=== PATIENT | female | born 1995 | race Caucasian/White ===

== ENCOUNTER 2017-03-12 11:36 | Emergency (ER) | payer MEDICARE, MEDICAID ==
[~2017-03-12] VITALS: Ht 167.6 cm; Wt 116.1 kg
[~2017-03-12 11:36] MED LIST: ALBU18; IPRAAER6; LORA1TAB12; QUET25TA37; SERT-275
[2017-03-12] MEDS ORDERED: LORazepam 0.5 MG TAB PO ONE (13:15)
[2017-03-12 13:47] VITALS: BP 150/94
== END 2017-03-12 13:55 | disposition home or self-care (01) ==
LOC: ER 11:36
DX: F41.1 Generalized anxiety disorder (principal); F32.9 Major depressive disorder, single episode, unspecified; J45.909 Unspecified asthma, uncomplicated